=== PATIENT | female | born 1995 ===

== ENCOUNTER 2017-03-27 22:36 | Emergency (ER) | payer OTHER ==
[~2017-03-27] VITALS: Ht 165.1 cm; Wt 70.3 kg
[~2017-03-27 22:36] MED LIST: CEPH500 PO; DESO.25TC TOP; LORA1 PO; Norco 5-325 Ta1 EACH PO; PENVK500 PO
== END 2017-03-27 23:28 | disposition home or self-care (01) ==
LOC: ER 22:36
DX: L02.31 Cutaneous abscess of buttock (principal); F17.210 Nicotine dependence, cigarettes, uncomplicated
CPT/HCPCS: 10060; 99283

== ENCOUNTER → 2017-07-30 20:45 | Emergency (ER) | payer OTHER ==
[~2017-07-30] VITALS: Ht 160 cm; Wt 70.3 kg
== END | disposition home or self-care (01) ==
LOC: ER 20:45
DX: S90.32XA Contusion of left foot, initial encounter (principal); F17.210 Nicotine dependence, cigarettes, uncomplicated; X58.XXXA Exposure to other specified factors, initial encounter
CPT/HCPCS: 73630; 99283

== ENCOUNTER 2018-07-16 14:59 | Emergency (ER) | payer MEDICAID ==
[~2018-07-16] VITALS: Ht 165.1 cm; Wt 77.1 kg
[2018-07-16] MEDS ORDERED: Bactrim Ds Tab1 EACH PO (15:34)
[2018-07-16] MEDS ORDERED: HYDR1TAB94 PO (15:38)
== END 2018-07-16 15:56 | disposition home or self-care (01) ==
LOC: ER 14:59
DX: L02.31 Cutaneous abscess of buttock (principal); F17.200 Nicotine dependence, unspecified, uncomplicated
CPT/HCPCS: 10060; 87070; 87075; 87205; 99283-25

== ENCOUNTER 2021-01-29 16:52 | Emergency (ER) | payer OTHER ==
[~2021-01-29] VITALS: Ht 165.1 cm; Wt 81.7 kg
[~2021-01-29 16:52] MED LIST changes: +Augmentin 875-1 EACH PO; +Bactrim Ds Tab1 EACH PO; +HYDR1TAB94 PO; +IBUP600 PO; +Norco 10-325 T1 EACH PO; +ONDA4ODT MM
[2021-01-29 17:22] LABS: BASOPHILS ABSOLUTE AUTO 0.05 K/mm3 (0.00-0.23); BASOPHILS PERCENT AUTO 0 % (0-2); EOSINOPHILS ABSOLUTE AUTO 0.05 K/mm3 (0.00-0.68); EOSINOPHILS PERCENT AUTO 0 % (0-6); Hematocrit 38.6 % (33.0-51.0); Hemoglobin 13.2 g/dL (11.5-16.0); IMMATURE GRAN ABSOLUTE AUTO 0.03 K/mm3 (0.00-0.10); IMMATURE GRAN PERCENT AUTO 0 % (0-1); LYMPHOCYTES ABSOLUTE AUTO 2.26 K/mm3 (0.84-5.20); LYMPHOCYTES PERCENT AUTO 19 % (21-46); MONOCYTES ABSOLUTE AUTO 0.56 K/mm3 (0.16-1.47); MONOCYTES PERCENT AUTO 5 % (4-13); Mean Corpuscular HGB 30.4 pg (26.0-34.0); Mean Corpuscular HGB Conc 34.2 g/dL (31.5-36.5); Mean Corpuscular Volume 89 fL (80-100); Mean Platelet Volume 10.7 fL (9.1-12.4); NEUTROPHILS ABSOLUTE AUTO 9.07 K/mm3 (1.96-9.15); NEUTROPHILS PERCENT AUTO 76 % (41-73); Platelet Count 454 K/mm3 (150-400); RDW Coefficient Variation 13.2 % (11.7-14.2); RDW Standard Deviation 43.3 fL (35.1-46.3); Red Blood Cell Count 4.34 M/mm3 (3.80-5.20); White Blood Cell Count 12.02 K/mm3 (4.00-11.30)
[2021-01-29 17:29] LABS: Source, Urine Clean Catch
[2021-01-29 17:31] LABS: Appearance, Urine Hazy (Clear); Bilirubin, Urine Neg (Neg); Blood, Urine Neg (Neg); Color, Urine Amber (P-Yellow); Glucose Qualitative, Urine Neg (Neg); Ketones, Urine Neg (Neg); Leukocyte Esterase, Urine 1+ (Neg); Nitrite, Urine Neg (Neg); Protein, Urine 2+ (Neg); Specific Gravity, Urine 1.025 (1.003-1.022); Urobilinogen, Urine 1+ (Normal)
[2021-01-29 17:38] LABS: Bacteria Many /hpf; Mucus Mod (0-Heavy); Red Blood Cells, Urine Not Seen /hpf (0-2); Squamous Epithelial Cells Many /hpf (Few)
[2021-01-29 17:42] LABS: Alanine Aminotransfer (ALT/SGP 17 U/L (12-78); Albumin/Globulin Ratio 0.8 (0.8-1.8); Alk Phos 39 U/L (50-136); Anion Gap 6 mmol/L (6-16); Aspartate Aminotrans (AST/SGOT 9 U/L (12-37); Bilirubin, Total 0.3 mg/dL (0.1-1.0); Blood Urea Nitrogen 9 mg/dL (8-24); CO2, Blood 23 mmol/L (21-32); Chloride, Blood 108 mmol/L (98-108); Creatinine, Blood 0.82 mg/dL (0.40-1.00); Globulin, Blood 3.9 g/dL (2.2-4.0); Glomerular Filtration Rate >60 (60-); Glucose, Blood 132 mg/dL (70-99); Potassium, Blood 3.7 mmol/L (3.5-5.5); Sodium, Blood 137 mmol/L (136-145); Total Protein, Blood 6.9 g/dL (6.4-8.2)
== END 2021-01-29 18:36 | disposition home or self-care (01) ==
LOC: ER 16:52
PROVIDERS: Physician Assistant
DX: O99.711 Diseases of the skin and subcutaneous tissue complicating pregnancy, first trimester (principal); L02.31 Cutaneous abscess of buttock; O99.331 Smoking (tobacco) complicating pregnancy, first trimester; F17.200 Nicotine dependence, unspecified, uncomplicated; Z3A.01 Less than 8 weeks gestation of pregnancy
CPT/HCPCS: 10060; 36415; 80053; 81001; 83690; 84702; 85025; 86900; 86901; 87086; 99283-25; J2405; J7030

== ENCOUNTER → 2021-03-10 | Outpatient (CLI) | payer OTHER ==
[2021-03-10 15:29] LABS: Source, Urine Clean Catch
[2021-03-10 16:01] LABS: Amorphous Heavy (0-Heavy); Bacteria Mod /hpf; Red Blood Cells, Urine 0-2 /hpf (0-2); Squamous Epithelial Cells Few /hpf (Few); White Blood Cells, Urine 0-2 /hpf (0-5)
[2021-03-10 16:06] LABS: U Amphetamine Screen Not Detected; U Barbituate Screen Not Detected; U Benzodiazapine Screen Not Detected; U Buprenorphine Screen Not Detected; U Cannabinoids Screen DETECTED; U Cocaine Screen Not Detected; U Methadone Screen Not Detected; U Methamphetamine Screen Not Detected; U Opiates Screen Not Detected; U Oxycodone Screen Not Detected; U Phencyclidine Screen Not Detected; U Propoxyphene Screen Not Detected
== END | disposition home or self-care (01) ==
LOC: LAB SHORT 14:02
PROVIDERS: Advanced Practice Midwife
DX: Z34.01 Encounter for supervision of normal first pregnancy, first trimester (principal)
CPT/HCPCS: 81015; 87086

== ENCOUNTER → 2021-08-27 | Outpatient (CLI) | payer OTHER | END | disposition home or self-care (01) | LOC: LAB 10:06 → LAB SHORT 10:06 | DX: O09.92 Supervision of high risk pregnancy, unspecified, second trimester (principal) | CPT/HCPCS: 87081; 87150 ==

== ENCOUNTER 2021-09-11 07:50 | Inpatient (IN) | payer OTHER ==
[~2021-09-11] VITALS: Ht 165.1 cm; Wt 108.0 kg
[2021-09-11] MEDS ORDERED: PRENATAL TABLE1 EAC2 PO (10:48)
[2021-09-11 11:19] LABS: BASOPHILS ABSOLUTE AUTO 0.02 K/mm3 (0.00-0.23); BASOPHILS PERCENT AUTO 0 % (0-2); EOSINOPHILS PERCENT AUTO 0 % (0-6); Hematocrit 37.8 % (33.0-51.0); Hemoglobin 12.8 g/dL (11.5-16.0); IMMATURE GRAN ABSOLUTE AUTO 0.09 K/mm3 (0.00-0.10); IMMATURE GRAN PERCENT AUTO 1 % (0-1); LYMPHOCYTES ABSOLUTE AUTO 1.81 K/mm3 (0.84-5.20); LYMPHOCYTES PERCENT AUTO 13 % (21-46); MONOCYTES ABSOLUTE AUTO 0.49 K/mm3 (0.16-1.47); MONOCYTES PERCENT AUTO 4 % (4-13); Mean Corpuscular HGB 28.1 pg (26.0-34.0); Mean Corpuscular HGB Conc 33.9 g/dL (31.5-36.5); Mean Corpuscular Volume 83 fL (80-100); Mean Platelet Volume 10.8 fL (9.1-12.4); NEUTROPHILS ABSOLUTE AUTO 11.38 K/mm3 (1.96-9.15); NEUTROPHILS PERCENT AUTO 83 % (41-73); Platelet Count 262 K/mm3 (150-400); RDW Coefficient Variation 12.8 % (11.7-14.2); Red Blood Cell Count 4.55 M/mm3 (3.80-5.20); White Blood Cell Count 13.79 K/mm3 (4.00-11.30)
--- NOTE | 2021-09-11 18:30 | NUR ---
lt side of pt bottom extra sore, really palpated perinium on the outside and the outside of labia, tissue feel soft, but pt reports more sore on her left side where the repair was done,
--- NOTE | 2021-09-11 19:07 | NUR ---
report to feli contreras,
--- NOTE | 2021-09-11 19:45 | NUR ---
AFTER VAGINAL EXAM, DR ANDRADE DISCOVERED A PROBABLE 2CM HEMATOMA CONSISTENT WITH WHERE THE POST DELIVERY REPAIR WAS AND DISCUSSED WITH THE PT THE OPTION TO PLACE VAGINAL PACKING FOR THE NIGHT TO PREVENT POTENTIAL INCREASED BLEEDING. 1 PACKAGE OF VAGINAL PACKING WAS PLACED BY PROVIDER AND A MCCLURE CATHERTER WAS ALSO PLACED AT THIST TIME. PROVIDER WILL REEVALUATE IN AM. PLAN FOR CBC 6HRS AFTER DELIVERY
[2021-09-11 22:59] LABS: BASOPHILS ABSOLUTE AUTO 0.03 K/mm3 (0.00-0.23); BASOPHILS PERCENT AUTO 0 % (0-2); EOSINOPHILS ABSOLUTE AUTO 0.01 K/mm3 (0.00-0.68); EOSINOPHILS PERCENT AUTO 0 % (0-6); Hematocrit 32.4 % (33.0-51.0); Hemoglobin 11.1 g/dL (11.5-16.0); IMMATURE GRAN ABSOLUTE AUTO 0.05 K/mm3 (0.00-0.10); IMMATURE GRAN PERCENT AUTO 0 % (0-1); LYMPHOCYTES ABSOLUTE AUTO 2.53 K/mm3 (0.84-5.20); LYMPHOCYTES PERCENT AUTO 15 % (21-46); MONOCYTES PERCENT AUTO 6 % (4-13); Mean Corpuscular HGB 28.6 pg (26.0-34.0); Mean Corpuscular HGB Conc 34.3 g/dL (31.5-36.5); Mean Corpuscular Volume 84 fL (80-100); Mean Platelet Volume 10.5 fL (9.1-12.4); NEUTROPHILS ABSOLUTE AUTO 12.87 K/mm3 (1.96-9.15); NEUTROPHILS PERCENT AUTO 78 % (41-73); Platelet Count 223 K/mm3 (150-400); RDW Coefficient Variation 12.9 % (11.7-14.2); RDW Standard Deviation 38.6 fL (35.1-46.3); Red Blood Cell Count 3.88 M/mm3 (3.80-5.20); White Blood Cell Count 16.49 K/mm3 (4.00-11.30)
--- NOTE | 2021-09-12 00:55 | NUR ---
RN ANSWERED CALL LIGHT. PATIENT STATES THAT SHE COUGHED AND FELT HER VAGINAL PACKING COME OUT. RN ASKED TO DO AN ASSESMENT. SAW PACKING HAD CAME OUT, WAS HEAVILY SATURATED IN BLOOD AND CLOTS, THERE WAS A LARGE AMOUNT OF LOCHIA ON PAD AND CHUX. UPDATED PT'S RN, ELIO, WHO CAME TO ASSESS WITH ME. UPDATED DR. ANDRADE WHO CAME TO BEDSIDE TO ASSESS. DR ANDRADE REMOVED PACKING. QBL FOR THIS BLEED WAS 404. DR ANDRADE'S PLAN IS FOR RN TO WATCH AND WAIT FOR NOW.
--- NOTE | 2021-09-12 03:13 | NUR ---
R IN WITH RN TO ASSESS BLEEDING. SWELLING HAS SIGNIFICANTLY WORSENED AND PT CONTINUED TO HAVE BLEEDING. REYR DID A GENTLE VAGINAL EXAM IN ROOM AND DETERMINED TO GO TO OR TO BETTER ASSESS. ADDITIONAL QBL 465CC AT THIS TIME.
[2021-09-12 03:47] LABS: BASOPHILS ABSOLUTE AUTO 0.03 K/mm3 (0.00-0.23); BASOPHILS PERCENT AUTO 0 % (0-2); EOSINOPHILS ABSOLUTE AUTO 0.04 K/mm3 (0.00-0.68); EOSINOPHILS PERCENT AUTO 0 % (0-6); Hematocrit 29.4 % (33.0-51.0); Hemoglobin 10.1 g/dL (11.5-16.0); IMMATURE GRAN ABSOLUTE AUTO 0.07 K/mm3 (0.00-0.10); IMMATURE GRAN PERCENT AUTO 1 % (0-1); LYMPHOCYTES ABSOLUTE AUTO 3.04 K/mm3 (0.84-5.20); LYMPHOCYTES PERCENT AUTO 20 % (21-46); MONOCYTES ABSOLUTE AUTO 1.06 K/mm3 (0.16-1.47); MONOCYTES PERCENT AUTO 7 % (4-13); Mean Corpuscular HGB 28.9 pg (26.0-34.0); Mean Corpuscular HGB Conc 34.4 g/dL (31.5-36.5); Mean Corpuscular Volume 84 fL (80-100); Mean Platelet Volume 10.6 fL (9.1-12.4); NEUTROPHILS ABSOLUTE AUTO 10.92 K/mm3 (1.96-9.15); NEUTROPHILS PERCENT AUTO 72 % (41-73); Platelet Count 217 K/mm3 (150-400); RDW Coefficient Variation 13.1 % (11.7-14.2); RDW Standard Deviation 38.9 fL (35.1-46.3); Red Blood Cell Count 3.49 M/mm3 (3.80-5.20); White Blood Cell Count 15.16 K/mm3 (4.00-11.30)
[2021-09-12 04:08] LABS: International Normalized Ratio 0.93; Prothrombin Time Results 9.8 Sec (9.7-11.5)
--- NOTE | 2021-09-12 04:13 | NUR ---
TO OR AT 0405.
--- NOTE | 2021-09-12 04:23 | NUR ---
Dr. braxton remained in house while continuing to assess bleeding. Dr. Braxton updated w/ each pad changed of new QBL.
--- NOTE | 2021-09-12 04:29 | NUR ---
09/12/21 0429 Monique Mann PT RECIEVED ANCEF IV PRIOR TO ARRIVAL TO OR.
--- NOTE | 2021-09-12 05:39 | NUR ---
TWO SURGICAL ACCOUNTS MADE FOR SAME PROCEDURE. COCOA BEAN ROASTER CHARTED ON ALTERNATE PROCEDURE. INTO PACU ASSMENT AND CARE PLAN CHARTED IN SURGICAL ACCOUNT TIMED FOR 0330 IN THE SYSTEM. OTHER CHARTING PREFORMED IN THE SAME ACCOUNT THAT OR CHARTED IN, TIMED AT 0845 START TIME.
--- NOTE | 2021-09-12 10:17 | NUR ---
1015 PATIENT CONTINUES TO SLEEP. WILL FEED BABY WHILE SHE RESTS
--- NOTE | 2021-09-12 10:17 | NUR ---
0930 PATIENT SLEEPING. DID NOT DISTURB
[2021-09-12 12:07] LABS: BASOPHILS ABSOLUTE AUTO 0.05 K/mm3 (0.00-0.23); BASOPHILS PERCENT AUTO 0 % (0-2); EOSINOPHILS PERCENT AUTO 0 % (0-6); Hematocrit 29.3 % (33.0-51.0); Hemoglobin 9.8 g/dL (11.5-16.0); IMMATURE GRAN ABSOLUTE AUTO 0.16 K/mm3 (0.00-0.10); IMMATURE GRAN PERCENT AUTO 1 % (0-1); LYMPHOCYTES PERCENT AUTO 14 % (21-46); MONOCYTES ABSOLUTE AUTO 0.58 K/mm3 (0.16-1.47); MONOCYTES PERCENT AUTO 2 % (4-13); Mean Corpuscular HGB Conc 33.4 g/dL (31.5-36.5); Mean Corpuscular Volume 87 fL (80-100); Mean Platelet Volume 10.6 fL (9.1-12.4); NEUTROPHILS PERCENT AUTO 82 % (41-73); Platelet Count 247 K/mm3 (150-400); RDW Coefficient Variation 13.4 % (11.7-14.2); RDW Standard Deviation 41.1 fL (35.1-46.3); Red Blood Cell Count 3.38 M/mm3 (3.80-5.20); White Blood Cell Count 23.79 K/mm3 (4.00-11.30)
--- NOTE | 2021-09-12 13:06 | NUR ---
1230 patient awake, sitting up holding baby. reports mild cramping, otherwise doing well
--- NOTE | 2021-09-13 11:28 | NUR ---
DISCHARGE INSTRUCTION, WRITTEN AND VERBAL, GIVEN TO PARENTS. ANSWERED ALL QUESTIONS AND CONCERNED. IV PREVIOUSLY DISCONTINUED. FOLLOW UP APPOINTMENT SCHEDULED. PT IS READY FOR DISCHARGE.
--- NOTE | 2021-09-13 12:46 | NUR ---
[place] DEPRESSION SCORE OF 5.
== END 2021-09-13 14:35 | disposition home or self-care (01) | DRG 768 ==
LOC: BC 07:50 → OBS 07:50 → BC 10:45
PROVIDERS: Obstetrics & Gynecology; ADMIT Advanced Practice Midwife
PROC: 10E0XZZ Delivery of Products of Conception, External Approach (ICD-10-PCS; principal; 2021-09-11)
PROC: 0KQM0ZZ Repair Perineum Muscle, Open Approach (ICD-10-PCS; 2021-09-11)
PROC: 10907ZC Drainage of Amniotic Fluid, Therapeutic from Products of Conception, Via Natural or Artificial Opening (ICD-10-PCS; 2021-09-11)
PROC: 3E0R3BZ Introduction of Anesthetic Agent into Spinal Canal, Percutaneous Approach (ICD-10-PCS; 2021-09-11)
PROC: 00HU33Z Insertion of Infusion Device into Spinal Canal, Percutaneous Approach (ICD-10-PCS; 2021-09-11)
PROC: 0W3R0ZZ Control Bleeding in Genitourinary Tract, Open Approach (ICD-10-PCS; 2021-09-12)
DX: O35.8XX0 Maternal care for other (suspected) fetal abnormality and damage, not applicable or unspecified (principal); Z37.0 Single live birth; O71.7 Obstetric hematoma of pelvis; O72.1 Other immediate postpartum hemorrhage; O70.1 Second degree perineal laceration during delivery; Z3A.38 38 weeks gestation of pregnancy; Z98.890 Other specified postprocedural states; Z87.891 Personal history of nicotine dependence; Z87.2 Personal history of diseases of the skin and subcutaneous tissue; Z79.899 Other long term (current) drug therapy
CPT/HCPCS: 36415; 51702; 59025; 85025; 85384; 85610; 85730; 86850; 86900; 86901; A9270; J0690; J1100; J1885; J2001; J2250; J2370; J2405; J2590; J2704; J2765; J3010; J7120

== ENCOUNTER → 2021-09-29 | Outpatient (CLI) | payer OTHER ==
[~2021-09-29] MED LIST changes: +PRENATAL TABLE1 EAC2 PO
[2021-09-30 10:53] LABS: Candida species (DNA Probe) Negative (NEGATIVE); G. vaginalis (DNA Probe) Positive (NEGATIVE); T. vaginalis (DNA Probe) Negative (NEGATIVE)
== END | disposition home or self-care (01) ==
LOC: LAB 13:40 → LAB SHORT 13:40
PROVIDERS: Advanced Practice Midwife
DX: N76.0 Acute vaginitis (principal)
CPT/HCPCS: 87480; 87510; 87660

== ENCOUNTER 2023-11-11 08:14 | Day surgery (SDC) | payer OTHER ==
[2023-11-11] VITALS (9 sets, daily range): BP systolic 107–121; BP diastolic 69–91
[~2023-11-11] VITALS: Ht 164 cm; Wt 90.6 kg
[~2023-11-11 08:14] MED LIST changes: +Ampicillin Sod/Sulbactam Sod 3 GM in NS 100 ML IV SCH; +Lactated Ringer's 1,000 ML IV SCH
[2023-11-11] MEDS ORDERED: Midazolam HCl 1MG / ML 2ML Vial IV ONE (09:10)
[2023-11-11] MEDS ORDERED: EpiNEPhrine 1 MG/1 ML 1ML Vial ONE (09:11)
[2023-11-11] MEDS ORDERED: Bupivacaine 0.5% Inj 50 ML Vial ONE (09:11)
--- NOTE | 2023-11-11 09:14 | NUR ---
History, Chart, Medications and Allergies reviewed before start of procedure. Patient up to Ambulate independently. Gait steady. Pre-Op teaching done. Pt verbalizes understanding. Patient confirms NPO status and agrees with scheduled surgery. Patient States Post-Procedure ride home has been arranged.
[2023-11-11] MEDS ORDERED: propofoL 20 ML IV ONE (09:28)
[2023-11-11] MEDS ORDERED: FentaNYL Citrate 50 MCG/ML 2 ML Injection ONE ×2 (09:28→09:46)
[2023-11-11] MEDS ORDERED: Ketorolac Tromethamine 30mg Vial ONE (09:46)
[2023-11-11] MEDS ORDERED: Dexamethasone Sod Phos 10 MG/ML 1ML VIAL ONE (10:21)
[2023-11-11] MEDS ORDERED: Ondansetron HCl 2 MG / ML 2ML Vial ONE (10:21)
[2023-11-11] MEDS ORDERED: Sugammadex Sodium 200 MG/2ML SDV (100 MG/ML) ONE (10:21)
[2023-11-11] MEDS ORDERED: OxyCODONE 5 mg/Acetamin 325 mg TABLET PO PRN (10:55)
--- NOTE | 2023-11-11 11:18 | NUR ---
REPORT RECEIVED FROM STACY OLIVERA. VSS. PT ON RA. PT A&OX4. PT ABLE TO REPOSITION SELF IN BED. PT REQUESTING PO FOOD AND FLUIDS AND TOLERATING THEM WELL. PT REPORTS FEELING PRESSURE, BUT NO PAIN. PT ALSO DENIES NAUSEA OR OTHER DISCOMFORTS. PT HAS JAYNA DRAIN THAT HAS SCANT SSD DRAINAGE NOTED. PT ALSO HAS DRESSING TO TO BUTTOCKS THAT HAS GAUZE AND TEGADERM IN PLACE. DRESSING IS C/D/I.
--- NOTE | 2023-11-11 12:23 | NUR ---
Patient up to Ambulate independently. Gait steady. VSS AND CONSISTENT WITH PT BASELINE. PT HAS NO COMPLAINTS AND VERBALIZES READINESS TO GO HOME. Discharge instructions reviewed with patient. Patient verbalizes understanding. Copy given to patient to take home. Dressing to procedure site clean, dry, intact with no visible drainage, swelling, erythema or bruising noted. PT JAYNA DRAIN HAS SCANT SSD. Discharged via wheelchair to private car for ride home. PT BELONGINGS RETURNED TO PT.
== END 2023-11-11 12:20 | disposition home or self-care (01) ==
LOC: ORSCMMR 08:14 → ORD 09:30 → ORSCMMR 12:20
PROVIDERS: Surgery
PROC: 0HX8XZZ Transfer Buttock Skin, External Approach (ICD-10-PCS; principal; 2023-11-11 09:30)
DX: L05.91 Pilonidal cyst without abscess (principal); F41.9 Anxiety disorder, unspecified; K21.9 Gastro-esophageal reflux disease without esophagitis; F17.210 Nicotine dependence, cigarettes, uncomplicated
CPT/HCPCS: 88305; J0171; J0295; J1100; J1885; J2250; J2405; J2704; J3010; J7120